=== PATIENT | female | born 1995 | race Caucasian/White ===

== ENCOUNTER 2019-11-14 08:03 | Inpatient (IN) | payer OTHER, SELFPAY ==
[2019-11-14] VITALS (29 sets, daily range): BP systolic 101–120; BP diastolic 39–75; PULSE 111–140; O2SAT 96–100; BMI 19.5
[2019-11-14] MEDS: LACTATED RINGERS 1,000 ML 75 ML IV CONT (09:26)
[2019-11-14] MEDS: BETAMETHASONE SOD PHOS/ACETATE 30 MG/5 ML VIAL 12 MG IM (09:27)
[2019-11-14] MEDS: MAGNESIUM SULF 4 GM/WATER100ML 4 GM/100 ML BAG IVPB (09:33)
[2019-11-14 09:36] LABS: Add Urine Microscopic? YES; Appearance Urine Clear (Clear); Bacteria Urine Trace /hpf; Bilirubin Urine Negative (Negative); Blood Urine Negative (Negative); Color Urine Yellow (Yellow); Glucose Urine UA Negative (Negative); Ketones Urine Negative (Negative); Leukocyte Esterase Ur 1+ LEU/UL (Negative); Mucus Urine Rare /lpf; Nitrate Urine Negative (Negative); Protein Urine Negative (Negative); RBC Urine 0-2 /hpf (0-2); Specific Grav Ur 1.011 (1.001-1.035); Squamous Epithelial Cell Urine Moderate /hpf (Few); Urobilinogen Urine Negative mg/dL (<2.0); WBC Urine 0-3 /hpf
[2019-11-14 09:45] LABS: Fetal Fibronectin Positive
[2019-11-14] MEDS: TERBUTALINE SULFATE 1 MG/ML VIAL 0.25 MG SUB-Q (09:45)
[2019-11-14] MEDS: AMPICILLIN 2 GM/NS 100 ML 2 GM/100 ML BAG IVPB (09:50)
--- NOTE | 2019-11-14 10:09 | PM.IMHP ---
H&P: HPI History of Present Illness Date/Time: 11/14/19 10:09 Chief complaint: cramping Narrative: Noelle Black is a 23 year old female. She has a grade 1 para 0 at 26 and 4 days gestation. Her dating is based on an 8 week ultrasound. Her LMP differed by 8 days. she presented complaining uterine contractions. She has been evaluated here. Cervical exam was performed with speculum and fibronectin was retrieved. the cervix appeared closed visually, was checked manually, she was found to be 3 cm and 90% effaced. she denies any nausea, vomiting, fever, chills. She denies any urinary symptoms. She denies any chest pain or shortness of breath. Review of Systems Constitutional: Constitutional: Reports no additional constitutional complaints, Denies fatigue, Denies headache(s), Denies lethargy and Denies weakness Eyes: Eyes: Reports no additional eye complaints, Denies blurry vision and Denies photophobia ENT: Reports as per HPI, Denies headache(s) and Denies neck pain Cardiovascular: Cardiovascular: Denies chest pain, Denies diaphoresis, Denies leg edema, Denies palpitations and Denies dyspnea Respiratory: Respiratory: Denies hemoptysis, Denies dyspnea and Denies wheezing Gastrointestinal: Gastrointestinal: Denies abdominal pain, Denies melena, Denies bloating, Denies hematochezia, Denies nausea and Denies vomiting Genitourinary: Genitourinary: Reports no additional female genitourinary complaints Musculoskeletal: Musculoskeletal: Denies joint swelling, Denies neck pain, Denies numbness and Denies stiffness Neurologic: Denies Abnormal speech present, Denies confusion, Denies headache(s), Denies numbness and Denies weakness Psychiatric: Psychiatric: Denies anxiety, Denies confusion, Denies depression, Denies homicidal ideation and Denies suicidal ideation Endocrine: Endocrine: Denies fatigue and Denies palpitations Allergic/Immunologic: Allergic/Immunologic: Denies wheezing Meds Home Medications and Allergies Allergies Allergy/AdvReac Type Severity Reaction Status Date / Time No Known Allergies Allergy Verified 11/14/19 09:32 Vital Signs Vital Signs - 24 hr 11/14/19 08:30 11/14/19 09:46 11/14/19 09:52 Pulse Rate 111 H 116 H Blood Pressure 116/75 120/70 Pulse Oximetry 96 11/14/19 09:57 11/14/19 10:00 11/14/19 10:07 Pulse Rate 140 H Blood Pressure 118/57 L Pulse Oximetry 99 98 Exam Const: General: healthy appearing, comfortable and no acute distress; No confusion Orientation/consciousness: No confusion Eyes: Direct Ophthalmoscopy: No photophobia Resp: Auscultation: clear to auscultation bilaterally, no rales, no rhonchi and no wheezes Cardio: Rate: regular rate Heart sounds: no click, no murmurs and no rubs GI: Inspection: non-distended GI Palp: No abdominal tenderness Auscultation: normal bowel sounds : Manual OB Exam: dilated 3 cm, effaced (90%) and station -2 Neuro: General: No confusion Speech: No Abnormal speech present Extrem: General: normal to inspection, no pedal edema and no calf tenderness H&P: Results Labs Labs: Urine 11/14/19 Range/Units 09:01 Urine Color Yellow (Yellow) Urine Appearance Clear (Clear) Urine pH 6.0 (5.0-9.0) Ur Specific [place] 1.011 (1.001-1.035) Urine Protein Negative (Negative) mg/dL Urine Glucose (UA) Negative (Negative) mg/dL Assessment and Plan Assessment and plan (1) labor: Code(s): O60.00 - labor without delivery, unspecified trimester Status: Acute (2) 26 weeks gestation of : Code(s): Z3A.26 - 26 weeks gestation of Status: Acute Assessment and Plan: this patient is a 23-year-old 1 at 26 weeks and 4 days gestation. She presents in labor. Magnesium sulfate was administered. Terbutaline was used as well. Her contractions have resolved she appears to be stable. He does have a cervix that is dilated 3 cm
[2019-11-14] MEDS: MAGNESIUM SULF 20GM/WATER500ML 500 ML 50 MG IV CONT (10:12)
--- NOTE | 2019-11-14 10:20 | OBADM ---
This patient, Noelle Black, admitted to the OB room OB Post 116 for observation. Patient/family oriented to hospital policies and general routines including ID bracelet, bed and alarms, visiting hours, pain management, procedures, bathroom and other care routines, personal items, smoking policy, room service/diet,call light, and visiting hours. Patient/Family are encouraged to report perceived risks to care and to ask questions if they do not understand what they are told or what they should do.
[2019-11-14 10:50] LABS: Hematocrit 30.8 % (37.0-47.0); Hemoglobin 10.6 g/dL (12.0-15.0); Mean Corpuscular HGB Conc 34.4 g/dl (32-36); Mean Corpuscular Hemoglobin 29.9 pg (26-34); Mean Platelet Volume 10.4 fl (7.4-10.4); Platelet Count Result 229 k/mm3 (150-375); Red Blood Count 3.54 M/mm3 (4.2-5.4); White Blood Count 15.5 K/mm3 (4.5-10.0)
== END 2019-11-14 11:45 | disposition short-term general hospital (02) | DRG 833 ==
PROVIDERS: Admitting Provider Obstetrics & Gynecology; Visit Provider Obstetrics & Gynecology
DX: O60.02 Preterm labor without delivery, second trimester (principal); Z3A.26 26 weeks gestation of pregnancy
CPT/HCPCS: 36415; 81001; 82731; 85027; J0290; J0702; J3105; J3475; J7120

== ENCOUNTER 2021-12-13 10:38 | Outpatient (CLI) | payer OTHER, SELFPAY ==
[2021-12-13 18:59] LABS: Basophils Percent Auto 0.5 % (0.2-1.2); Eosinophils Percent Auto 0.5 % (0-4.4); Hematocrit 41.2 % (37.0-47.0); Hemoglobin 13.3 g/dL (12.0-15.0); Immature Granulocyte Absolute 0.01 K/mm3 (0.00-0.031); Immature Granulocyte Percent A 0.1 % (0-0.5); Lymphocytes Absolute Auto 2.16 K/mm3 (0.9-3.2); Lymphocytes Percent Auto 26.1 % (18.3-44.2); Mean Corpuscular HGB Conc 32.3 g/dl (32-36); Mean Corpuscular Hemoglobin 27.8 pg (26-34); Mean Platelet Volume 10.5 fl (7.4-10.4); Monocytes Absolute Auto 0.7 K/mm3 (0.1-0.6); Neutrophils Absolute Auto 5.4 K/mm3 (1.3-6.7); Neutrophils Percent Auto 64.8 % (45.5-73.1); Platelet Count Result 227 k/mm3 (150-375); Red Blood Count 4.79 M/mm3 (4.2-5.4); Red Cell Distribution Width 12.4 % (11.5-14.5); White Blood Count 8.3 K/mm3 (4.5-10.0)
[2021-12-13 19:11] LABS: Alanine Aminotransferase 15 U/L (6-35); Albumin Level 4.9 g/dL (3.5-5.1); Alkaline Phosphatase 83 U/L (38-126); Anion Gap 10 mmol/L (8-16); Aspartate Amino Transferase 53 U/L (14-36); Bilirubin,Total 0.8 mg/dL (0.2-1.3); Blood Urea Nitrogen 8 mg/dL (7-17); Calcium 9.3 mg/dL (8.4-10.2); Carbon Dioxide 27 mmol/L (22-30); Chloride 100 mmol/L (98-107); Cholesterol 191 mg/dL (0-200); Estimated Glomerular Filt Rate > 60; Glucose 87 mg/dL (65-110); HDL Direct 67 mg/dL; Potassium 4.6 mmol/L (3.4-5.0); Sodium 137 mmol/L (137-145); Triglycerides 89 mg/dL (<150)
[2021-12-13 19:22] LABS: LDL Cholesterol Direct 84 mg/dL
[2021-12-13 20:17] LABS: Folic Acid 16.4 ng/mL (2.76->20)
== END 2021-12-13 10:39 | disposition home or self-care (01) ==
LOC: ANHGOSHLAB 10:42
PROVIDERS: PCP Internal Medicine; Visit Provider Internal Medicine
DX: Z13.220 Encounter for screening for lipoid disorders (principal); F41.0 Panic disorder [episodic paroxysmal anxiety]; F41.1 Generalized anxiety disorder; Z86.2 Personal history of diseases of the blood and blood-forming organs and certain disorders involving the immune mechanism
CPT/HCPCS: 36415; 80053; 80061; 82607; 82728; 82746; 84443; 85025

== ENCOUNTER 2022-01-07 17:21 | Emergency (ER) | payer OTHER, SELFPAY ==
[2022-01-07 17:33] VITALS: BP 116/87; PULSE 126; RESP 16; TEMP 38.5; O2SAT 100
--- NOTE | 2022-01-07 17:42 | ED.URI ---
HPI - URI/Sore Throat General Chief Complaint: Upper Respiratory Infection Stated Complaint: SORE THROAT Time Seen by Provider: 01/07/22 17:42 Source: patient Mode of arrival: ambulatory Limitations: no limitations History of Present Illness HPI Narrative: 26-year-old female presents with complaint of sore throat 2 right side for 2-3 days. No other symptoms. Sexually active with a new partner for 1 month. Reports recent oral intercourse. All systems reviewed and negative except noted above. Related Data Allergies Allergy/AdvReac Type Severity Reaction Status Date / Time sertraline Allergy Unknown Rash Verified 01/07/22 17:30 Review of Systems Review of Systems: CONSTITUTIONAL: Denies fever, chills, or sweats. EYES: Denies visual changes, redness, or discharge. ENT: Denies rhinorrhea, congestion. Reports sore throat. CARDIOVASCULAR: Denies chest pain, palpitations, or edema. RESPIRATORY: Denies cough or dyspnea. GASTROINTESTINAL: Denies abdominal pain, nausea, vomiting, or diarrhea. GENITOURINARY: Denies dysuria or hematuria. SKIN: Denies rash or itching. MUSCULOSKELETAL: Denies back pain, joint pain, or myalgia. NEUROLOGIC: Denies headache, numbness, or weakness. PSYCHIATRIC: Denies anxiety or depression. All other systems reviewed are negative, except as documented in HPI. 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 There is no relevant family history pertinent to the presenting complaint. Exam Narrative: GENERAL: This is a well-nourished, well-developed patient, in no apparent distress. HEAD: normocephalic, atraumatic. EYES: PERRL. Sclera clear/white. Vision is grossly intact. EARS: External ears normal, auditory canals clear and without drainage, TMs normal without perforation. Hearing grossly intact. NOSE: External nose normal with no obvious nasal discharge, nares without redness, no rhinorrhea. THROAT: Mucous membranes moist, erythematous vesicles to right side of posterior pharynx. NECK: Neck supple, non-tender without lymphadenopathy, masses or thyromegaly. CARDIOVASCULAR: Regular rate and rhythm without murmurs, gallops, or rubs. RESPIRATORY: Clear to auscultation. Breath sounds equal bilaterally. No wheezes, rales, or rhonchi. SKIN: warm, Dry, intact with no suspicious lesions or rash, good texture and turgor. NEURO: awake, alert, and oriented to person, place and time. There were no obvious focal neurologic abnormalities. EXTREMITIES: No joint tenderness, effusion, or edema noted. Course Course Level of Care: Express Care Visit Vital Signs Vital signs: Vital Signs Temperature 38.5 C H 01/07/22 17:33 Pulse Rate 126 H 01/07/22 17:33 Respiratory Rate 16 01/07/22 17:33 Blood Pressure 116/87 01/07/22 17:33 Pulse Oximetry 100 01/07/22 17:33 Temperature 38.5 C H 01/07/22 17:33 Pulse Rate 126 H 01/07/22 17:33 Respiratory Rate 16 01/07/22 17:33 Blood Pressure 116/87 01/07/22 17:33 Pulse Oximetry 100 01/07/22 17:33 Recheck temp was 98.8 F. MDM - URI/Sore Throat MDM Narrative Medical decision making narrative: Patient is aware of diagnosis, understands and agrees to treatment plan. Anticipatory guidance given. Patient agrees to follow-up as directed and is aware of reasons to seek care at the emergency department. Portions of this record
[2022-01-07 18:13] VITALS: TEMP 37.2
== END 2022-01-07 18:04 | disposition home or self-care (01) ==
PROVIDERS: Emergency Provider Nurse Practitioner Family; PCP Internal Medicine
DX: B00.9 Herpesviral infection, unspecified (principal)
CPT/HCPCS: 87081; 87255; 87880; 99213; G0463

== ENCOUNTER 2022-01-10 14:38 | Outpatient (CLI) | payer OTHER, SELFPAY ==
[2022-01-10 19:19] LABS: Iron 27 ug/dL (37-170)
[2022-01-10 19:24] LABS: Alanine Aminotransferase 22 U/L (6-35); Albumin Level 4.8 g/dL (3.5-5.1); Alkaline Phosphatase 91 U/L (38-126); Aspartate Amino Transferase 28 U/L (14-36); Bilirubin,Total 0.5 mg/dL (0.2-1.3)
[2022-01-10 19:32] LABS: Percent Iron Saturation 10 % (20-50)
[2022-01-10 20:04] LABS: Hepatitis C Virus Antibody Negative (Negative)
[2022-01-16 10:45] LABS: Gliadin AB, IgG <1.0 U/mL (<15.0); TTG IGA AB <1.0 U/mL (<15.0)
[2022-01-19 01:36] LABS: Herpes Simplex Type 1 DNA PCR NOT DETECTED; Herpes Simplex Type 2 DNA PCR DETECTED
== END 2022-01-10 14:39 | disposition home or self-care (01) ==
LOC: ANHGOSHLAB 14:39
PROVIDERS: PCP Internal Medicine; Visit Provider Nurse Practitioner
DX: B00.9 Herpesviral infection, unspecified (principal); R74.8 Abnormal levels of other serum enzymes
CPT/HCPCS: 36415; 80076; 82728; 83516; 83540; 83550; 86803; 87529

== ENCOUNTER 2022-01-25 14:26 | Outpatient (CLI) | payer OTHER, SELFPAY ==
[2022-01-25 20:32] LABS: Hepatitis B Surface Antigen Negative (Negative)
[2022-01-25 20:49] LABS: Hepatitis C Virus Antibody Negative (Negative)
[2022-01-26 06:37] LABS: Rapid Plasma Reagin Non-Reactive (NonReactive)
[2022-01-29 14:11] LABS: HIV 1 2 Ag Ab 4th Gen w Rflxs Non-reactive (Non-reactive)
== END 2022-01-25 14:27 | disposition home or self-care (01) ==
LOC: ANHGOSHLAB 14:29
PROVIDERS: PCP Internal Medicine; Visit Provider Internal Medicine
DX: Z11.3 Encounter for screening for infections with a predominantly sexual mode of transmission (principal); B00.2 Herpesviral gingivostomatitis and pharyngotonsillitis
CPT/HCPCS: 36415; 86592; 86803; 87340; 87389; 87491; 87591